=== PATIENT | female | born 1945 | race Caucasian/White ===

== ENCOUNTER 2019-04-28 05:25 | Inpatient (IN) | payer OTHER ==
[~2019-04-28] VITALS: Ht 142.2 cm; Wt 76.2 kg
[~2019-04-28 05:25] MED LIST: AMILODIPINE PO; ATORVASTATIN CA20 MG PO; GABAPENTIN400 MG PO; LOTREL 5-10 MG1 CAP PO; VITA-BEE WITH1 EACH PO
[2019-04-30] MEDS ORDERED: NEURONTIN300 MG PO (09:00)
[2019-04-30] MEDS ORDERED: MIRALAX17 GM PO (09:00)
[2019-04-30] MEDS ORDERED: TRAMADOL HCL50 MG PO (09:00)
[2019-04-30] MEDS ORDERED: TYLENOL EXTRA500 MG PO (09:00)
== END 2019-04-30 10:43 | disposition home or self-care (01) | DRG 355 ==
LOC: CIR.AMB 05:25 → EDBD 08:15 → SURG 09:59 → O/R 09:59 → CIR.AMB 10:15 → SURG 10:59
PROVIDERS: ADMIT Surgery
PROC: 0WUF4JZ Supplement Abdominal Wall with Synthetic Substitute, Percutaneous Endoscopic Approach (ICD-10-PCS; 2019-04-28)
PROC: 0KXL0Z6 Transfer Left Abdomen Muscle, Transverse Rectus Abdominis Myocutaneous Flap, Open Approach (ICD-10-PCS; 2019-04-28)
PROC: 0KXK0Z6 Transfer Right Abdomen Muscle, Transverse Rectus Abdominis Myocutaneous Flap, Open Approach (ICD-10-PCS; 2019-04-28)
PROC: 0WUF4JZ Supplement Abdominal Wall with Synthetic Substitute, Percutaneous Endoscopic Approach (ICD-10-PCS; principal; 2019-04-28 10:15)
DX: K43.0 Incisional hernia with obstruction, without gangrene (principal); K42.0 Umbilical hernia with obstruction, without gangrene; I10 Essential (primary) hypertension; E78.49 Other hyperlipidemia

== ENCOUNTER 2024-05-10 09:30 | Inpatient (IN) | payer OTHER ==
[~2024-05-10] VITALS: Ht 142.2 cm; Wt 67.6 kg
[~2024-05-10 09:30] MED LIST changes: +MIRALAX17 GM PO; +NEURONTIN300 MG PO; +TRAMADOL HCL50 MG PO; +TYLENOL EXTRA500 MG PO
[2024-05-16] MEDS ORDERED: CEFAZOLIN SODIUM 1,000 MG VIAL IV ONE (14:30)
[2024-05-16] MEDS ORDERED: MORPHINE SULFATE 4 MG/ML CARTRIDGE IV ONE (14:30)
[2024-05-16] MEDS ORDERED: LIDOCAINE HCL 1%/EPINEPHRINE 20ML VIAL IJ ONE (14:30)
[2024-05-16] MEDS ORDERED: TRANEXAMIC ACID 100MG/1ML (1000MG) AMPUL IV ONE ×2 (14:30)
[2024-05-16] MEDS ORDERED: BUPIVACAINE HCL 30 ML VIAL IJ ONE (14:30)
[2024-05-16] MEDS ORDERED: POLYMYXIN B SULFATE 500,000 U VIAL IR ONE (14:30)
[2024-05-16] MEDS ORDERED: KETOROLAC TROMETHAMINE 60 MG VIAL IM ONE (14:30)
[2024-05-16] MEDS ORDERED: ONDANSETRON HCL 2 MG/ML VIAL IV PRN (16:00)
[2024-05-16] MEDS ORDERED: MORPHINE SULFATE 4 MG/ML CARTRIDGE IV PRN (16:00)
[2024-05-16] MEDS ORDERED: MORPHINE SULFATE 2 MG/ML CARTRIDGE IV NR (16:00)
[2024-05-16] MEDS ORDERED: SODIUM CHLORIDE 0.45 % 1,000 ML IV SCH (16:00)
[2024-05-16] MEDS ORDERED: CEFAZOLIN SODIUM 1,000 MG VIAL IV SCH (18:00)
[2024-05-16 20:00] LABS: HEMATOCRIT 38.1 % (36.0-45.00); HEMOGLOBIN 12.8 g/dL (12.0-15.00); RED BLOOD COUNT 4.14 M/uL (4.00-6.00)
[2024-05-16] MEDS ORDERED: GENTAMICIN SULFATE 40 MG/ML VIAL IV SCH (21:00)
[2024-05-17 00:50] LABS: HEMATOCRIT 35.7 % (36.0-45.00); MEAN CELL VOLUME 93.7 fL (80.00-100.00); MEAN CORPUSCULAR HEMOGLOBIN 31.6 pg (27.00-32.0); MEAN CORPUSCULAR HGB CONC 33.7 g/dl (32.0-36.0); PLATELET COUNT 332 K/uL (150-450); RED BLOOD COUNT 3.81 M/uL (4.00-6.00); RED CELL DISTRIBUTION WIDTH 13.4 % (11.5-14.5)
[2024-05-17] MEDS ORDERED: TRAMADOL HCL 50 MG TABLET PO PRN (08:15)
[2024-05-17] MEDS ORDERED: ATORVASTATIN CALCIUM 20 MG TABLET PO SCH (09:00)
[2024-05-17] MEDS ORDERED: SENNA/DOCUSATE SODIUM 1 TAB TABLET PO SCH (09:00)
[2024-05-17] MEDS ORDERED: BACITRACIN 28.35 GM OINT.TUBE TOP SCH (09:00)
[2024-05-17] MEDS ORDERED: RIVAROXABAN 10 MG TAB PO SCH (09:00)
[2024-05-17] MEDS ORDERED: IRON FUM,PS/FOLIC/BCOMP,C NO.9 1 CAP CAPSULE PO SCH (09:00)
[2024-05-17] MEDS ORDERED: AMLODIPINE BESYLATE 5 MG TABLET PO SCH (09:00)
[2024-05-18 01:21] LABS: HEMATOCRIT 30.9 % (36.0-45.00); HEMOGLOBIN 10.8 g/dL (12.0-15.00); MEAN CELL VOLUME 91.4 fL (80.00-100.00); MEAN CORPUSCULAR HEMOGLOBIN 31.9 pg (27.00-32.0); PLATELET COUNT 303 K/uL (150-450); RED BLOOD COUNT 3.38 M/uL (4.00-6.00); RED CELL DISTRIBUTION WIDTH 13.4 % (11.5-14.5)
[2024-05-18] MEDS ORDERED: TRAMADOL HCL50 MG PO (06:34)
[2024-05-18] MEDS ORDERED: INTEGRA PLUS C1 EACH PO (06:34)
[2024-05-18] MEDS ORDERED: XARELTO10 MG PO (06:34)
[2024-05-18] MEDS ORDERED: CEFADROXIL500 MG PO (06:34)
[2024-05-18 13:03] LABS: CALCIUM 9.4 mg/dL (8.5-10.1); CREATININE SERUM 0.49 mg/dL (0.55-1.02); GFR 122.46; POTASSIUM 3.78 mEq/L (3.5-5.1)
== END 2024-05-18 18:03 | disposition home or self-care (01) | DRG 470 ==
LOC: OB/GYN 05-16 08:15 → O/R 05-16 08:15 → SURH 05-16 08:15 → OB/GYN 05-16 16:51
PROVIDERS: ADMIT Orthopaedic Surgery Sports Medicine; ATTEND Orthopaedic Surgery Sports Medicine
PROC: 0SRC0J9 Replacement of Right Knee Joint with Synthetic Substitute, Cemented, Open Approach (ICD-10-PCS; principal; 2024-05-16 08:15)
PROC: B54BZZZ Ultrasonography of Right Lower Extremity Veins (ICD-10-PCS; 2024-05-17)
DX: M17.11 Unilateral primary osteoarthritis, right knee (principal); I10 Essential (primary) hypertension; R73.03 Prediabetes